=== PATIENT | female | born 1970 | race Two or more races ===

== ENCOUNTER 2024-01-15 06:51 | Day surgery (SDC) | payer MEDICAID ==
[~2024-01-15] VITALS: Ht 170.2 cm; Wt 117.9 kg
[~2024-01-15 06:51] MED LIST: ACYC400T16 PO; PAR20T PO
[2024-01-15] MEDS ORDERED: ceFAZolin 2 GM/D5W50ml 50 ML IV ONE (07:33)
[2024-01-15] MEDS ORDERED: BUPIVACAINE HCL 0.25% P/F 10 ML VIAL ONE (08:11)
[2024-01-15] MEDS ORDERED: fentaNYL CITRATE 100 MCG/2 ML VL ONE (08:14)
[2024-01-15] MEDS ORDERED: PROPOFOL 10 MG/ML 20 ML IV ONE (08:14)
[2024-01-15] MEDS ORDERED: ONDANSETRON HCL 4 MG/2 ML VIAL ONE (08:58)
[2024-01-15] MEDS ORDERED: MEPERIDINE HCL (50 MG/ML) 1 ML VIAL ONE (08:58)
[2024-01-15 09:25] VITALS: TEMP 97.2; O2SAT 96
[2024-01-15] MEDS: HYDROmorphone HCL 2 MG/ML VL/or syr IV PRN (10:36)
[2024-01-15] MEDS ORDERED: MEPERIDINE HCL (25 MG/ML) 1ML VIAL IV PRN (10:45)
[2024-01-15] MEDS ORDERED: ONDANSETRON HCL 4 MG/2 ML VIAL IV ONE (10:45)
[2024-01-15 11:05] VITALS: BP 160/77; PULSE 73; RESP 15; O2SAT 98
== END 2024-01-15 11:17 | disposition home or self-care (01) ==
LOC: SUR 06:51
PROVIDERS: ATTEND Orthopaedic Surgery Adult Reconstructive Orthopaedic Surgery
DX: G56.01 Carpal tunnel syndrome, right upper limb (principal); G56.21 Lesion of ulnar nerve, right upper limb; G62.9 Polyneuropathy, unspecified; M19.90 Unspecified osteoarthritis, unspecified site; G89.29 Other chronic pain; E66.01 Morbid (severe) obesity due to excess calories; Z98.51 Tubal ligation status; Z79.899 Other long term (current) drug therapy; Z98.890 Other specified postprocedural states; Z68.41 Body mass index [BMI] 40.0-44.9, adult
CPT/HCPCS: 64718; 64721; J0690; J1170; J2175; J2405; J2704; J3010; J3490

== ENCOUNTER 2024-03-11 06:16 | Day surgery (SDC) | payer MEDICAID ==
[~2024-03-11] VITALS: Ht 170.2 cm; Wt 117.9 kg
[~2024-03-11 06:16] MED LIST changes: +ACET-1080 PO; +ASPI81CH59 PO
[2024-03-11] MEDS: ceFAZolin 2 GM/D5W50ml 50 ML IV ONE (07:31)
[2024-03-11] MEDS ORDERED: PROPOFOL 10 MG/ML 20 ML IV ONE (07:34)
[2024-03-11] MEDS ORDERED: LIDOCAINE 2% (LOCAL ANESTH.) PF 5ml SDV ONE (07:34)
[2024-03-11] MEDS ORDERED: fentaNYL CITRATE 100 MCG/2 ML VL ONE ×2 (07:34→07:48)
[2024-03-11] MEDS ORDERED: ONDANSETRON HCL 4 MG/2 ML VIAL ONE (07:34)
[2024-03-11] MEDS ORDERED: MIDAZOLAM HCL 2MG/2ML 2ml VIAL (1mg/ml) ONE (07:34)
[2024-03-11] MEDS: BUPIVACAINE 0.25% INJ 50ML VIAL ONE (07:59)
[2024-03-11] MEDS: LIDOCAINE 1% HCL (LOCAL ANESTH.) INJ 20ML MDV ONE (07:59)
[2024-03-11 08:15] VITALS: TEMP 98; O2SAT 100
[2024-03-11] MEDS ORDERED: ONDANSETRON HCL 4 MG/2 ML VIAL IV ONE (08:30)
[2024-03-11] MEDS: HYDROmorphone HCL 2 MG/ML VL/or syr IV PRN (09:47)
[2024-03-11 10:00] VITALS: BP 115/69; PULSE 71; RESP 16; O2SAT 95
== END 2024-03-11 12:25 | disposition home or self-care (01) ==
LOC: SUR 06:16
PROVIDERS: ATTEND Orthopaedic Surgery Adult Reconstructive Orthopaedic Surgery
DX: G56.02 Carpal tunnel syndrome, left upper limb (principal); M67.432 Ganglion, left wrist; F32.A Depression, unspecified; E66.9 Obesity, unspecified; Z68.41 Body mass index [BMI] 40.0-44.9, adult; Z79.899 Other long term (current) drug therapy; Z90.89 Acquired absence of other organs; Z98.890 Other specified postprocedural states
CPT/HCPCS: 25111; 64721; 88305; J0690; J1170; J2001; J2250; J2405; J2704; J3010; J3490